=== PATIENT | male | born 1975 | race Caucasian/White ===

== ENCOUNTER 2018-02-26 17:40 | Emergency (ER) | payer OTHER ==
[~2018-02-26] VITALS: Ht 175.3 cm; Wt 72.6 kg
[~2018-02-26 17:40] MED LIST: ACETAMINOPHEN-1 EAC1 PO; CLEOCIN HCL150 M1 PO; CLEOCIN HCL300 MG PO; KEFLEX500 MG PO; Magic Mouthwash PO; NAPROSYN500 M1 PO; NOHOMEMEDICATIONS; NORCO 5-325 TA1 EACH PO; PERCOCET 5-3251 EACH PO
[2018-02-26 17:47] VITALS: BP 182/113
[2018-02-26] MEDS ORDERED: KEFLEX500 M1 PO (18:07)
== END 2018-02-26 18:16 | disposition home or self-care (01) ==
LOC: M.ERS 17:40
DX: S61.432A Puncture wound without foreign body of left hand, initial encounter (principal); Z23 Encounter for immunization; F17.210 Nicotine dependence, cigarettes, uncomplicated; Z88.0 Allergy status to penicillin; W29.4XXA Contact with nail gun, initial encounter; Y92.89 Other specified places as the place of occurrence of the external cause; Y93.89 Activity, other specified; Y99.8 Other external cause status

== ENCOUNTER 2019-10-05 03:40 | Emergency (ER) | payer OTHER ==
[~2019-10-05] VITALS: Ht 175.3 cm; Wt 76.2 kg
[~2019-10-05 03:40] MED LIST changes: +KEFLEX500 M1 PO
[2019-10-05 04:29] LABS: ABSOLUTE BASOPHILS 0.1 thou/uL (0.0-0.2); ABSOLUTE EOSINOPHILS 0.4 thou/uL (0.0-0.7); ABSOLUTE LYMPHOCYTES 2.8 thou/uL (0.8-5.3); ABSOLUTE MONOCYTES 0.9 thou/uL (0.0-1.2); ABSOLUTE NEUTROPHILS 9.8 thou/uL (1.6-8.1); BASOPHILS 0.6 %; HEMATOCRIT 40.7 % (42.0-52.0); HEMOGLOBIN 13.7 gm/dL (14.0-18.0); LYMPHOCYTES 19.8 %; MCH 31.1 pg (26.0-34.0); MCHC 33.8 g/dL (28.0-37.0); MCV 92.2 fL (80.0-100.0); MONOCYTES 6.4 %; MPV 7.2 fl. (7.2-11.1); NUCLEATED RBCS 0 /100WBC; PLATELET COUNT* 261 thou/uL (150-400); POLYS 70.2 %; RBC 4.41 mil/uL (4.50-6.00); RDW-CV 13.7 % (10.5-14.5); WBC 13.9 thou/uL (4.0-11.0)
[2019-10-05 04:35] LABS: CALCIUM 8.1 mg/dL (8.5-10.1); CREATININE 1.2 mg/dL (0.6-1.3); POTASSIUM 3.9 mmol/L (3.5-5.1)
[2019-10-05] MEDS ORDERED: FLEXERIL PO (05:18)
[2019-10-05] MEDS ORDERED: HYDROCODON-ACE1 EAC8 PO (05:18)
[2019-10-05 05:23] VITALS: BP 146/95
== END 2019-10-05 05:23 | disposition home or self-care (01) ==
LOC: M.ERS 03:40
PROVIDERS: Emergency Medicine
DX: N23 Unspecified renal colic (principal); F17.210 Nicotine dependence, cigarettes, uncomplicated; Z88.0 Allergy status to penicillin; Z87.442 Personal history of urinary calculi

== ENCOUNTER 2020-08-12 10:17 | Emergency (ER) | payer OTHER ==
[~2020-08-12] VITALS: Ht 175.3 cm; Wt 72.6 kg
[~2020-08-12 10:17] MED LIST changes: +FLEXERIL PO; +HYDROCODON-ACE1 EAC8 PO
[2020-08-12] MEDS ORDERED: CEPHALEXIN500 MG PO (10:55)
[2020-08-12 10:57] VITALS: BP 168/98
== END 2020-08-12 10:58 | disposition home or self-care (01) ==
LOC: M.ERS 10:17
DX: H00.011 Hordeolum externum right upper eyelid (principal); F17.210 Nicotine dependence, cigarettes, uncomplicated; Z88.0 Allergy status to penicillin; Z87.442 Personal history of urinary calculi

== ENCOUNTER 2020-11-15 11:35 | Emergency (ER) | payer OTHER ==
[~2020-11-15] VITALS: Ht 177.8 cm; Wt 74.8 kg
[~2020-11-15 11:35] MED LIST changes: +CEPHALEXIN500 MG PO
[2020-11-15 12:16] VITALS: BP 157/88
== END 2020-11-15 12:17 | disposition home or self-care (01) ==
LOC: M.ERS 11:35
DX: Z20.822 Contact with and (suspected) exposure to COVID-19 (principal); F17.210 Nicotine dependence, cigarettes, uncomplicated; Z88.0 Allergy status to penicillin; Z87.442 Personal history of urinary calculi